=== PATIENT | male | born 2000 | race Caucasian/White ===

== ENCOUNTER 2022-04-13 19:34 | Emergency (ER) | payer BC ==
[~2022-04-13] VITALS: Ht 162.6 cm; Wt 82.6 kg
[2022-04-13 19:38] VITALS: BP 139/82
--- NOTE | 2022-04-13 19:49 | NUR ---
TO LOBBY FOLLOWING TRIAGE AND OBTAINING UA
[2022-04-13 20:48] LABS: APPEARANCE,URINE CLEAR (CLEAR); BILIRUBIN,URINE NEGATIVE (NEGATIVE); BLOOD, URINE NEGATIVE (NEGATIVE); COLOR,URINE YELLOW (YELLOW); LEUKOCYTE ESTERASE ,URINE NEGATIVE (NEGATIVE); NITRITE, URINE NEGATIVE (NEGATIVE); UGLUCOSE NEGATIVE (NEGATIVE)
--- NOTE | 2022-04-13 22:30 | NUR ---
CALLED PT BACK FOR MD EVALUATION, NO ANSWER
== END 2022-04-13 22:30 | disposition left against medical advice (07) ==
LOC: MED 19:34
DX: R10.33 Periumbilical pain (principal); Z53.21 Procedure and treatment not carried out due to patient leaving prior to being seen by health care provider
CPT/HCPCS: 81003